=== PATIENT | male | born 1950 | race Caucasian/White ===

== ENCOUNTER 2025-06-22 15:55 | Emergency (ER) | payer OTHER ==
[2025-06-22] MEDS: Bacitracin Oint 1 GM U/D Packet TOP ONE (16:12)
== END 2025-06-22 16:36 | disposition home or self-care (01) ==
LOC: JP.ED 15:55
DX: S60.352A Superficial foreign body of left thumb, initial encounter (principal); I10 Essential (primary) hypertension; Z79.899 Other long term (current) drug therapy; W45.8XXA Other foreign body or object entering through skin, initial encounter
CPT/HCPCS: 99283; J2003